=== PATIENT | female | born 1995 | race Caucasian/White ===

== ENCOUNTER 2020-02-20 09:12 | Outpatient (CLI) | payer BC, SELFPAY ==
--- NOTE | 2020-02-20 09:30 | US_ITS ---
WS: [id number] ULTRASOUND BREAST RIGHT TECHNIQUE: Ultrasound right breast focused area of concern. CLINICAL INFORMATION: right breast pain COMPARISON: None. FINDINGS: Right breast 4 quadrants. No suspicious mass or lesion. No pathologic lesions. No lesions to target f or biopsy. Incidental tiny cyst at the 12:00 position measuring 8.1 x 1.3 x 5.2 mm. US/US breast RT limited* [id number] IMPRESSION: BI-RADS 2 benign FOLLOW UP: SCREENING MAMMOGRAPHY AGE 39
== END 2020-02-20 09:13 | disposition home or self-care (01) ==
PROVIDERS: PCP Registered Nurse; Visit Provider Registered Nurse
DX: N64.4 Mastodynia (principal)
CPT/HCPCS: 76642

== ENCOUNTER 2021-02-15 11:12 | Outpatient (CLI) | payer BC, SELFPAY ==
--- NOTE | 2021-02-15 11:24 | XR_ITS ---
WS: [id number] Exam: XR shoulder RT min 2V* [id number] Date/Time of Exam: 02/15/2021 11:24 AM Reason For Exam: M67.911 - Unspecified disorder of synovium and tendon, ri... The projections of the shoulder reveal no fractures, anomalies, soft tissue swelling, or calcificatio ns. There is normal bony alignment. No irregularity of the bony architecture is noted. XR/XR shoulder RT min 2V* [id number] IMPRESSION: Negative right shoulder.
== END 2021-02-15 11:13 | disposition home or self-care (01) ==
PROVIDERS: PCP Registered Nurse; Visit Provider Registered Nurse
DX: M25.511 Pain in right shoulder (principal)
CPT/HCPCS: 73030

== ENCOUNTER 2021-04-01 15:36 | Outpatient (CLI) | payer BC, SELFPAY ==
--- NOTE | 2021-04-01 15:49 | MR_ITS ---
WS: [id number] MRI RIGHT SHOULDER HISTORY: Chronic RIGHT shoulder pain. COMPARISON: RIGHT shoulder radiograph 02/15/2021 TECHNIQUE: Multiplanar sequences of the shoulder joint are submitted. Normal AC joint. No significant arthritis. Joint capsule is intact. No subacromial or subdeltoid burs al fluid. Biceps tendon is in normal position. Increase fluid in the biceps tendon sheath. No os acro mion. No rotator cuff tear. There is no muscle atrophy or edema. Cluster of subchondral cysts in the safety engineer pressure vessels ior lateral humeral head with a maximum diameter of 9 mm. This is near the site of the rotator cuff a ttachment. Very small amount of increased signal at the base of the superior labrum. Due to its orien tation this is probably a normal variant versus intrasubstance degeneration. No significant narrowing of the glenohumeral joint. MR/MR shoulder RT wo con* [id number] IMPRESSION: 1. No rotator cuff tear identified. 2. Mild degenerative subchondral cystic changes along the posterior lateral hu meral head. 3. Very small amount of the biceps tendon sheath tenosynovitis. 4. Mild intrasubstance degeneration along the base of the superior labrum. No definite labral tears identified.
== END 2021-04-01 15:37 | disposition home or self-care (01) ==
PROVIDERS: PCP Registered Nurse; Visit Provider Registered Nurse
DX: M25.511 Pain in right shoulder (principal); M65.9 Synovitis and tenosynovitis, unspecified
CPT/HCPCS: 73221

== ENCOUNTER 2021-05-14 08:28 | Outpatient (RCR) | payer BC, SELFPAY | END 2021-05-30 23:59 | disposition home or self-care (01) | LOC: SPT 08:28 | PROVIDERS: PCP Registered Nurse; Referring Provider Registered Nurse; Visit Provider Registered Nurse | DX: M67.911 Unspecified disorder of synovium and tendon, right shoulder (principal) | CPT/HCPCS: 97110; 97161 ==

== ENCOUNTER → 2021-08-05 16:17 | Outpatient (BNVA) | payer BC, SELFPAY | PROVIDERS: PCP Registered Nurse; Visit Provider Registered Nurse | DX: M25.50 Pain in unspecified joint (principal); E53.8 Deficiency of other specified B group vitamins | CPT/HCPCS: 80053; 82607; 85025; 86038; 86140; 86431 ==

== ENCOUNTER → 2022-12-10 15:44 | Outpatient (BNVA) | payer OTHER, SELFPAY | PROVIDERS: PCP Registered Nurse; Visit Provider Registered Nurse | DX: M25.50 Pain in unspecified joint (principal); I10 Essential (primary) hypertension; R53.83 Other fatigue | CPT/HCPCS: 80053; 82306; 82607; 84443; 85025 ==

== ENCOUNTER → 2023-11-13 09:09 | Outpatient (BNVA) | payer OTHER, SELFPAY | PROVIDERS: PCP Registered Nurse; Visit Provider Registered Nurse | DX: K21.9 Gastro-esophageal reflux disease without esophagitis (principal); M25.50 Pain in unspecified joint | CPT/HCPCS: 86003; 86008 ==

== ENCOUNTER → 2024-05-16 14:53 | Outpatient (BNVA) | payer OTHER, SELFPAY | PROVIDERS: PCP Registered Nurse; Visit Provider Registered Nurse | DX: Z01.419 Encounter for gynecological examination (general) (routine) without abnormal findings (principal) | CPT/HCPCS: 87624 ==

== ENCOUNTER → 2024-05-26 14:09 | Outpatient (BNVA) | payer OTHER, SELFPAY | PROVIDERS: PCP Registered Nurse; Visit Provider Registered Nurse | DX: R00.0 Tachycardia, unspecified (principal) | CPT/HCPCS: 84443; 85025 ==

== ENCOUNTER → 2024-08-10 16:01 | Outpatient (BNVA) | payer OTHER, SELFPAY | PROVIDERS: PCP Registered Nurse; Visit Provider Internal Medicine Cardiovascular Disease | DX: R00.0 Tachycardia, unspecified (principal) | CPT/HCPCS: 93005 ==

== ENCOUNTER 2024-08-31 14:29 | Emergency (ER) | payer OTHER, SELFPAY ==
--- NOTE | 2024-08-31 14:31 | XRR_ITS ---
PROCEDURE INFORMATION: Exam: XR Chest Exam date and time: 08/31/2024 3:28 PM Age: 29 years old Clinical indication: Pain; Chest pressure; Additional info: Cp TECHNIQUE: Imaging protocol: Radiologic exam of the chest. Views: 1 view. COMPARISON: MR shoulder RT wo con* [id number] 04/01/2021 3:55 PM FINDINGS: Lungs: Unremarkable. No consolidation. Pleural spaces: Unremarkable. No pleural effusion. No pneumothorax. Heart/Mediastinum: Unremarkable. No cardiomegaly. Bones/joints: Unremarkable. XR/XR chest 1V portable [id number] IMPRESSION: No acute findings.
--- NOTE | 2024-08-31 14:37 | ECG_ITS ---
i[employer] Reminder [employer] Test Date: 2024-08-31 Pat Name: Antonia Stack Department: Room: Gender: Female Export Clerk: : 1995 Requested By: Ge Matute Order Number: [id number] Lobo MD: Pierre Quintero M.D. Measurements Intervals [place] Rate: 131 P: 54 OR: 124 QRS: -11 QRSD: 80 T: 35 QT: 333 QTc: 492 Interpretive Statements SINUS TACHYCARDIA POSSIBLE RIGHT VENTRICULAR CONDUCTION DELAY [RSR (QR) IN V1/V2] Compared to ECG 08/10/2024 16:05:47 Sinus rhythm no longer present Electronically Signed On 09-01-2024 12:29:07 FACILITY OPERATIONS MANAGER by Pierre Quintero M.D. [email or web address]
[2024-08-31 14:38] VITALS: BP 127/85; PULSE 113; TEMP 36.7; O2SAT 98; BMI 31.1
[2024-08-31 15:37] LABS: Basophils # 0.1 10^3/uL (0.0-0.1); Basophils % 0.5 %; Eosinophils # 0.1 10^3/uL (0.0-0.8); Eosinophils % 0.9 %; Hematocrit 39.4 % (36-47); Lymphocytes # 2.6 10^3/uL (0.8-4.8); Lymphocytes % 26.2 %; Mean Corpuscular HGB Conc 32.7 g/dL (30-55); Mean Corpuscular Hemoglobin 29.3 pg (27-33); Mean Corpuscular Volume 89.5 fl (85-98); Mean Platelet Volume 8.3 fL (7.4-10.4); Monocytes # 0.9 10^3/uL (0.2-0.9); Monocytes % 9.2 %; Neutrophils # 6.19 10^3/uL (1.8-7.7); Neutrophils % 62.9 %; Nucleated Red Blood Cells % 0 %; Platelet Count 394 10^3/cmm (157-399); Red Cell Distribution Width 12.6 % (12.1-15.1); White Blood Count 9.85 10^3/uL (3.29-11.43)
[2024-08-31 15:53] LABS: INR 0.91 (0.8-1.2)
[2024-08-31 15:58] LABS: Troponin(5th) Baseline < 6 ng/L (0-10)
[2024-08-31 16:05] LABS: Alanine Aminotransferase 17 U/L (0-33); Albumin Level 4.7 g/dL (3.5-5.2); Alkaline Phosphatase 81 U/L (35-105); Anion Gap 19.6 (5-19); Aspartate Amino Transferase 17 U/L (0-32); Blood Urea Nitrogen 12 mg/dL (6-20); Calcium 9.5 mg/dL (8.5-10.5); Carbon Dioxide 23 mmol/L (22-29); Chloride 99 mmol/L (98-107); Globulin 2.3 g/dL (1.3-4.6); Glomerular Filtration Rate 73.5 mL/min (90-130); Glucose 72 mg/dL (65-115); Lipase 42 U/L (13-60); Osmolality Calculated 282 mOsm/kg (285-295); Potassium 4.6 mmol/L (3.5-5.1); Sodium 137 mmol/L (136-145); Total Bilirubin 0.2 mg/dL (0.15-1.2)
[2024-08-31 16:12] LABS: HCG, Serum Qual Negative (Negative)
[2024-08-31 17:07] VITALS: BP 110/77; PULSE 91; RESP 16; O2SAT 96
--- NOTE | 2024-08-31 17:10 | ED_ITS ---
HPI - Arrhythmia/Palpitations 2 General: Chief Complaint: Arrhythmia/Palpitations Stated Complaint: chest pain Time Seen by Provider: 08/31/24 16:58 Source: patient Mode of arrival: ambulatory Limitations: no limitations History of Present Illness: 29-year-old female who states she had mnedez dden onset of chest pain earlier today states it was a sharp pain in the center of her chest she had some mild dyspnea as well states its improved states she has had issues with this in the past and tachycardia sees Dr. Magallanes is on metoprolol she denies any fever denies any cough denies any vomiting Associated symptoms: Deny nausea or vomiting Related Data Home Medications Medication Instructions Recorded Confirmed cholecalciferol (vitamin D3) 1,250 PO 03/31/23 08/10/24 mcg (50,000 unit) capsule glucosamine sulfate 1,000 mg 1,000 mg PO DAILY 05/16/24 08/10/24 capsule Previous Rx's Medication Instructions Recorded magnesium oxide See Rx Instructions .Route 06/23/24 .COMPLEX #100 tabs metoprolol succinate 50 mg 50 mg PO DAILY #90 tabs 08/10/24 tablet,extended release 24 hr duloxetine 30 mg capsule,delayed 30 mg PO BID 30 days #60 caps 08/11/24 release Allergies Allergy/AdvReac Type Severity Reaction Status Date / Time codeine Allergy Unknown Verified 08/31/24 14:43 egg Allergy Unknown Verified 08/31/24 14:43 Review of Systems 2 Const: Denies: fever(s), chills, body aches or change in appetite ENMT: Denies: throat pain or dental pain Card: Reports: chest pain Resp: Reports: dyspnea GI: Denies: abdominal pain, nausea, vomiting or diarrhea Musc: Denies: neck pain or back pain Skin/Breast: Denies: rash Neuro: Denies: headache(s) PFSH ED 2 PFSH: Surgical History History of appendectomy History of endometrial ablation History of tubal ligation Family History Family/Other Cancer Social History Smoking and tobacco/nicotine status: never used tobacco/nicotine Alcohol intake: never Substance/Drug Use: never Adopted: No Caregiver/support person: No Lives independently: No Household members: spouse and children Marital status: service: No Current occupational status: employed Sexually active: Yes Do you think of yourself as: Straight/Heterosexual Current gender identity: Female Physical Exam 2 Const: COMMON NORMALS: no acute distress, patient oriented x3 and healthy appearing HENMT: COMMON NORMALS: normocephalic and atraumatic HEAD & SCALP: n ormocephalic and atraumatic Eye: COMMON NORMALS: Equal, round and reactive pupils present and EOMs intact bilaterally PUPIL: Yes Equal, round and reactive pupils present Neck/C-Spine: COMMON NORMALS: full ROM and supple Chest: COMMONS NORMALS: normal inspection of the chest and normal palpation of entire chest wall Resp: COMMON NORMALS: normal respiratory effort, No retractions, No use of accessory muscles and clear to auscultation bilaterally AUSCULTATION: clear to auscultation bilaterally Cardio: COMMON NORMALS: regular rhythm and No murmurs present (Cardio) R ATE: tachycardic RHYTHM: regular rhythm Extremity: COMMON NORMALS: normal to inspection and full ROM Neuro: COMMON NORMALS: patient oriented x3, moves all extremities and no focal motor deficits Psych: COMMON NORMALS: mental status grossly normal, Normal thought process present and cooperative THOUGHT PROCESS: Normal thought process present Skin: COMMON NORMALS: no rashes or lesions noted and no wounds GENERAL SKIN EXAM: no rashes or lesions noted Course 2 Vital Signs: Vital signs: Vital Signs Temperature 98.0 F 08/31/24 14:38 Pulse Rate 83 08/31/24 18:53 Respiratory Rate 16 08/31/24 18:53 Blood Pressure 110/77 08/31/24 18:53 Pulse Oximetry 100 08/31/24 18:53 Oxygen Delivery Me thod Room Air 08/31/24 18:00 MDM - Arrhythmia/Palpitations Medical Decision Making Patient presents for chest pains atypical in nature troponin D-dimer is negative patient stable for discharge follow-up PCP return if worsening. Medical Records I reviewed the patient's medical records. Lab Data I reviewed the patient's lab results. 08/31/24 15:07 08/31/24 15:07 Radiology Impressions Chest X-Ray 08/31/24 14:31 IMPRESSION: No acute findings. Laboratory Results WBC 9.85 10^3/uL (3.29-11.43) 08/31/24 15:07 RBC 4.40 10^6/uL (3.85-5.65) 08/31/24 15:07 Hgb 12.90 g/dL (11.27-16.99) 08/31/24 15:07 Hct 39.4 % (36-47) 08/31/24 15:07 MCV 89.5 fl (85-98) 08/31/24 15:07 MCH 29.3 pg (27-33) 08/31/24 15:07 MCHC 32.7 g/dL (30-55) 08/31/24 15:07 RDW 12.6 % (12.1-15.1) 08/31/24 15:07 Plt Count 394 10^3/cmm (157-399) 08/31/24 15:07 MPV 8.3 fL (7.4-10.4) 08/31/24 15:07 Neut % (Auto) 62.9 % 08/31/24 15:07 Lymph % (Auto) 26.2 % 08/31/24 15:07 Carlton % (Auto) 9.2 % 08/31/24 15:07 Eos % (Auto) 0.9 % 08/31/24 15:07 Baso % (Auto) 0.5 % 08/31/24 15:07 Neut # (Auto) 6.19 10^3/uL (1.8-7.7) 08/31/24 15:07 Lymph # (Auto) 2.6 10^3/uL (0.8-4.8) 08/31/24 15:07 Carlton # (Auto) 0.9 10^3/uL (0.2-0.9) 08/31/24 15:07 Eos # (Auto) 0.1 10^3/uL (0.0-0.8) 08/31/24 15:07 Baso # (Auto) 0.1 10^3/uL (0.0-0.1) 08/31/24 15:07 Nucleated RBC % (auto) 0 % 08/31/24 15:07 Nucleated RBCs # 0.0 /100WBC 08/31/24 15:07 PT 12.50 SECONDS (12.1-14.9) 08/31/24 15:07 INR 0.91 (0.8-1.2) 08/31/24 15:07 D-Dimer 0.47 ug/mLFEU (0-0.59) 08/31/24 15:07 Sodium 137 mmol/L (136-145) 08/31/24 15:07 Potassium 4.6 mmol/L (3.5-5.1) 08/31/24 15:07 Chloride 99 mmol/L (98-107) 08/31/24 15:07 Carbon Dioxide 23 mmol/L (22-29) 08/31/24 15:07 Anion Gap 19.6 (5-19) H 08/31/24 15:07 BUN 12 mg/dL (6-20) 08/31/24 15:07 Creatinine 0.9 mg/dL (0.5-0.9) 08/31/24 15:07 GFR Calculation 73.5 mL/min (90-130) L 08/31/24 15:07 Glucose 72 mg/dL (65-115) 08/31/24 15:07 Calculated Osmolality 282 mOsm/kg (285-295) L 08/31/24 15:07 Calcium 9.5 mg/dL (8.5-10.5) 08/31/24 15:07 Total Bilirubin 0.2 mg/dL (0.15-1.2) 08/31/24 15:07 AST 17 U/L (0-32) 08/31/24 15:07 ALT 17 U/L (0-33) 08/31/24 15:07 Alkaline Phosphatase 81 U/L (35-105) 08/31/24 15:07 Troponin T Baseline < 6 ng/L (0-10) 08/31/24 15:07 Troponin T 120 Minute 6.00 ng/L (0-10) 08/31/24 17:45 Delta Troponin T 0.85274 ABS# (0-10) 08/31/24 17:45 Total Protein 7.0 g/dL (6.6-8.7) 08/31/24 15:07 Albumin 4.7 g/dL (3.5-5.2) 08/31/24 15:07 Globulin 2.3 g/dL (1.3-4.6) 08/31/24 15:07 Lipase 42 U/L (13-60) 08/31/24 15:07 HCG, Qual Negative (Negative) 08/31/24 15:07 All radiology interpretation(s) finalized by discharge EKG Data EKG 1: I personally reviewed and interpreted this EKG as follows: EKG interpretation date: 08/31/24 EKG interpretation time: 17:50 Interpretation: nsr hr [address] elevation qrs 83 qtc 383 Other EKG comments: Chest X-Ray 08/31/24 14:31 IMPRESSION: No acute findings. Discharge Plan Discharge Patient Disposition: Home Clinical Impression: Chest pain Condition: Stable Prescriptions: No Action cholecalciferol (vitamin D3) 1,250 mcg (50,000 unit) capsule PO glucosamine sulfate 1,000 mg capsule 1,000 mg PO DAILY Rx Instructions: administer with a meal metoprolol succinate 50 mg tablet extended release 24 hr 50 mg PO DAILY Qty: 90 3RF magnesium oxide 500 mg magnesium tablet See Rx Instructions .ROUTE .COMPLEX Qty: 100 0RF Dose Instruction: TAKE 1 TABLET BY MOUTH DAILY Rx Instructions: TAKE 1 TABLET BY MOUTH DAILY duloxetine 30 mg capsule,delayed release(DR/EC) 30 mg PO BID 30 Days Qty: 60 0RF Discharge Orders: Discharge ED (Routine); Ordered 08/31/24 Ordered By: Ge Matute Referrals: Maren Garvin FNP [Primary Care Provider] - Discharge Activity: Resume usual activity Patient Instructions: Chest Pain (ED) Coding Level of Care Code ED Health Insurance Adjuster for Edy Kemp
[2024-08-31 17:38] LABS: D Dimer 0.47 ug/mLFEU (0-0.59)
--- NOTE | 2024-08-31 17:50 | ECG_ITS ---
[employer] Test Date: 2024-08-31 Pat Name: Antonia Stack Department: Room: Gender: Female Database Marketing Specialist: : 1995 Requested By: Ge Matute Order Number: [id number] Lobo MD: Pierre Quintero M.D. Measurements Intervals [place] Rate: 87 P: 57 ND: 157 QRS: -12 QRSD: 83 T: 11 QT: 338 QTc: 409 Interpretive Statements SINUS RHYTHM POSSIBLE RIGHT VENTRICULAR CONDUCTION DELAY [RSR (QR) IN V1/V2] Compared to ECG 08/31/2024 14:37:35 Sinus tachycardia no longer present Electronically Signed On 09-01-2024 12:34:39 TECHNICAL MARKETING ENGINEER by Pierre Quintero M.D. [id number]
[2024-08-31 18:00] VITALS: BP 103/74; PULSE 86; RESP 16; O2SAT 100
[2024-08-31 18:47] LABS: Troponin 5 2HR Delta 0.00001 ABS# (0-10)
[2024-08-31 18:53] VITALS: BP 110/77; PULSE 83; RESP 16; O2SAT 100
[2024-08-31 19:13] VITALS: BP 116/81; PULSE 96; RESP 16; O2SAT 99
== END 2024-08-31 19:14 | disposition home or self-care (01) ==
PROVIDERS: Emergency Provider Emergency Medicine; PCP Registered Nurse
DX: R07.9 Chest pain, unspecified (principal)
CPT/HCPCS: 36415; 71045; 80053; 83690; 84484; 84703; 85025; 85378; 85610; 93005; 93010; 99285

== ENCOUNTER → 2024-09-13 09:17 | Outpatient (BNVA) | payer OTHER, SELFPAY | PROVIDERS: PCP Registered Nurse; Visit Provider Nurse Practitioner Family | DX: I10 Essential (primary) hypertension (principal) | CPT/HCPCS: 80061 ==

== ENCOUNTER 2024-09-26 09:54 | Outpatient (CLI) | payer OTHER, SELFPAY ==
--- NOTE | 2024-09-26 10:00 | USCV_ITS ---
Antonia Stack Age: 29 Gender: F : 1995 Exam Date: 09/26/2024 10:04 Ordering Phys: Mel Magallanes MD ([email or web address]) Technologist: [place] [facility] [place]: palpitations BP: 112 / 82 HR: 93 Rhythm: Sinus Technical Quality: Adequate MEASUREMENTS (Male / Female) Normal Values 2D ECHO LVOT Diameter 2.0 cm LV Ejection Fraction MOD 4C 68.0 % LV Ejection Fraction MOD 2C 65.9 % LV Ejection Fraction 2C AL 65.7 % LA Diameter 2.0 cm RA Systolic Volume 4C AL 25.6 ml RA Systolic Volume 4C MOD 24.7 ml LA Sys Volume AL 22.2 cm cubed LA Sys Volume Index AL 11.9 cm cubed/m squared Aorta at Sinotubular Diameter 1.9 cm IVC Diameter 1.6 cm M-MODE LA Ao Ratio MM 1.3 AV Cusp Separation MM 1.6 cm DOPPLER AV Peak Velocity 127.0 cm/s LVOT Peak Velocity 114.0 cm/s AV Area Cont Eq vti 2.9 cm squared AV Area Cont Eq pk 2.9 cm squared MV Peak Velocity 70.0 cm/s MV Area PHT 4.0 cm squared Mitral E to A Ratio 1.2 TR Peak Velocity 160.0 cm/s TR Peak Gradient 10.2 mmHg TV Peak E Velocity 63.0 cm/s PV Peak Velocity 89.5 cm/s FINDINGS Left Ventricle Normal left ventricular size, systolic function and wall thickness, with no regional wall motion abnormalities. Left ventricular ejection fraction is estimated at 60 %. Normal diastolic function. Right Ventricle The right ventricle is normal in size and function. Right Atrium The right atrium is normal in size. Left Atrium The left atrium is normal in size. Mitral Valve Structurally normal mitral valve without significant stenosis or prolapse. There is no mitral regurgitation. Aortic Valve Structurally normal aortic valve without significant sclerosis or stenosis. There is no aortic regurgitation. Tricuspid Valve Structurally normal tricuspid valve without significant stenosis or regurgitation. Pulmonic Valve Structurally normal pulmonic valve without significant stenosis. There is no pulmonic regurgitation. Pericardium Normal pericardium without effusion. Aorta Normal ascending aorta dimension. IVC The inferior vena cava appears normal. CONCLUSIONS Normal left ventricular size, systolic function and wall thickness, with no regional wall motion abnormalities. Left ventricular ejection fraction is estimated at 60 %. Normal diastolic function. No significant valve abnormalities. There is no pericardial effusion. Right atrial pressure is around 5 mm of mercury. Mel Magallanes MD (Electronically Signed) Final Date: 27 September 2024 01:57 S
== END 2024-09-26 09:55 | disposition home or self-care (01) ==
LOC: RAD 09:55
PROVIDERS: PCP Registered Nurse; Visit Provider Internal Medicine Cardiovascular Disease
DX: R00.2 Palpitations (principal); R06.02 Shortness of breath
CPT/HCPCS: 93306

== ENCOUNTER → 2024-12-06 08:54 | Outpatient (BNVA) | payer OTHER, SELFPAY | PROVIDERS: PCP Registered Nurse; Visit Provider Nurse Practitioner Family | DX: E78.00 Pure hypercholesterolemia, unspecified (principal) | CPT/HCPCS: 80061 ==

== ENCOUNTER → 2025-04-20 08:44 | Outpatient (BNVA) | payer OTHER, SELFPAY | PROVIDERS: PCP Registered Nurse; Visit Provider Internal Medicine Cardiovascular Disease | DX: I47.11 Inappropriate sinus tachycardia, so stated (principal) | CPT/HCPCS: 80162 ==

== ENCOUNTER → 2025-05-22 14:46 | Outpatient (BNVA) | payer OTHER, SELFPAY | PROVIDERS: PCP Registered Nurse; Visit Provider Registered Nurse | DX: G43.109 Migraine with aura, not intractable, without status migrainosus (principal); R00.0 Tachycardia, unspecified; E53.8 Deficiency of other specified B group vitamins | CPT/HCPCS: 80048; 82306; 82607; 85025 ==